=== PATIENT | female | born 1965 | race Caucasian/White ===

== ENCOUNTER → 2018-05-04 | Outpatient (CLI) | payer OTHER ==
[~2018-05-04] MED LIST: ANAS1 PO; CHONDROITIN; DULO60; EXEM25 PO; FISH1000 PO; FLAX PO; FURO20 PO; GABA800 PO; GLUC500 PO; LEVSOD50 PO; LISI5 PO; MSM; MULTIVITAMIN; PANT40 PO; PREG150 PO; PRIMROSE OIL; Prednisone20 MG PO; SELENIUM 200MCG; THYR60 PO; UBID100 PO; Zovirax800 MG PO; [UNRECOGNIZED DRUG - OTHER]
== END | disposition home or self-care (01) ==
LOC: LAB 11:05 → LAB SHORT 11:05
DX: L08.9 Local infection of the skin and subcutaneous tissue, unspecified (principal)
CPT/HCPCS: 87070; 87205

== ENCOUNTER 2019-12-01 09:46 | Day surgery (SDC) | payer OTHER ==
[~2019-12-01] VITALS: Ht 167.6 cm; Wt 102.0 kg
== END 2019-12-01 11:47 | disposition home or self-care (01) ==
LOC: ORSCSDS 09:46
PROVIDERS: Surgery
PROC: 0DJD8ZZ Inspection of Lower Intestinal Tract, Via Natural or Artificial Opening Endoscopic (ICD-10-PCS; principal; 2019-12-01 11:00)
DX: Z12.11 Encounter for screening for malignant neoplasm of colon (principal); K57.30 Diverticulosis of large intestine without perforation or abscess without bleeding; E03.9 Hypothyroidism, unspecified; E11.9 Type 2 diabetes mellitus without complications; I10 Essential (primary) hypertension; E66.01 Morbid (severe) obesity due to excess calories; Z68.38 Body mass index [BMI] 38.0-38.9, adult; Z79.82 Long term (current) use of aspirin; Z79.84 Long term (current) use of oral hypoglycemic drugs; Z79.899 Other long term (current) drug therapy
CPT/HCPCS: 82947; J0330; J0461; J2405; J2704; J7120

== ENCOUNTER → 2020-02-02 | Outpatient (CLI) | payer OTHER ==
[2020-02-02 08:30] LABS: BASOPHILS ABSOLUTE AUTO 0.08 K/mm3 (0.00-0.23); BASOPHILS PERCENT AUTO 1 % (0-2); EOSINOPHILS ABSOLUTE AUTO 0.55 K/mm3 (0.00-0.68); EOSINOPHILS PERCENT AUTO 6 % (0-6); Hematocrit 41.7 % (33.0-51.0); IMMATURE GRAN ABSOLUTE AUTO 0.04 K/mm3 (0.00-0.10); IMMATURE GRAN PERCENT AUTO 0 % (0-1); LYMPHOCYTES ABSOLUTE AUTO 2.18 K/mm3 (0.84-5.20); LYMPHOCYTES PERCENT AUTO 23 % (21-46); MONOCYTES ABSOLUTE AUTO 0.46 K/mm3 (0.16-1.47); MONOCYTES PERCENT AUTO 5 % (4-13); Mean Corpuscular HGB 28.3 pg (26.0-34.0); Mean Corpuscular HGB Conc 33.6 g/dL (31.5-36.5); Mean Corpuscular Volume 84 fL (80-100); Mean Platelet Volume 9.3 fL (9.1-12.4); NEUTROPHILS ABSOLUTE AUTO 6.26 K/mm3 (1.96-9.15); NEUTROPHILS PERCENT AUTO 66 % (41-73); Platelet Count 336 K/mm3 (150-400); RDW Coefficient Variation 12.8 % (11.7-14.2); Red Blood Cell Count 4.95 M/mm3 (3.80-5.20); White Blood Cell Count 9.57 K/mm3 (4.00-11.30)
[2020-02-02 08:39] LABS: Alanine Aminotransfer (ALT/SGP 73 U/L (12-78); Albumin, Blood 3.7 g/dL (3.4-5.0); Albumin/Globulin Ratio 0.9 (0.8-1.8); Alk Phos 92 U/L (40-126); Anion Gap 9 mmol/L (6-16); Aspartate Aminotrans (AST/SGOT 36 U/L (12-37); Bilirubin, Total 0.3 mg/dL (0.1-1.0); Blood Urea Nitrogen 6 mg/dL (8-24); CO2, Blood 29 mmol/L (21-32); Calcium, Blood 8.9 mg/dL (8.5-10.1); Chloride, Blood 99 mmol/L (98-108); Globulin, Blood 4.3 g/dL (2.2-4.0); Glomerular Filtration Rate >60 (60-); Glucose, Blood 146 mg/dL (70-99); Sodium, Blood 137 mmol/L (136-145)
== END | disposition home or self-care (01) ==
LOC: LAB SHORT 08:23 → LAB EV 08:23
PROVIDERS: Physician Assistant
DX: K11.9 Disease of salivary gland, unspecified (principal)
CPT/HCPCS: 80053; 85025; 86735; 87798

== ENCOUNTER 2021-06-04 16:20 | Observation (INO) | payer OTHER ==
[~2021-06-04] VITALS: Ht 167.6 cm; Wt 96.0 kg
[2021-06-04 17:44] LABS: BASOPHILS ABSOLUTE AUTO 0.05 K/mm3 (0.00-0.23); BASOPHILS PERCENT AUTO 0 % (0-2); EOSINOPHILS ABSOLUTE AUTO 0.22 K/mm3 (0.00-0.68); EOSINOPHILS PERCENT AUTO 2 % (0-6); Hematocrit 39.5 % (33.0-51.0); Hemoglobin 13.2 g/dL (11.5-16.0); IMMATURE GRAN ABSOLUTE AUTO 0.05 K/mm3 (0.00-0.10); IMMATURE GRAN PERCENT AUTO 0 % (0-1); LYMPHOCYTES ABSOLUTE AUTO 2.56 K/mm3 (0.84-5.20); LYMPHOCYTES PERCENT AUTO 20 % (21-46); MONOCYTES PERCENT AUTO 6 % (4-13); Mean Corpuscular HGB 27.6 pg (26.0-34.0); Mean Corpuscular HGB Conc 33.4 g/dL (31.5-36.5); Mean Corpuscular Volume 83 fL (80-100); Mean Platelet Volume 9.5 fL (9.1-12.4); NEUTROPHILS ABSOLUTE AUTO 8.97 K/mm3 (1.96-9.15); NEUTROPHILS PERCENT AUTO 71 % (41-73); Platelet Count 356 K/mm3 (150-400); RDW Coefficient Variation 12.7 % (11.7-14.2); RDW Standard Deviation 38.1 fL (35.1-46.3); Red Blood Cell Count 4.78 M/mm3 (3.80-5.20); White Blood Cell Count 12.55 K/mm3 (4.00-11.30)
[2021-06-04 18:09] LABS: Alanine Aminotransfer (ALT/SGP 47 U/L (12-78); Albumin, Blood 3.8 g/dL (3.4-5.0); Albumin/Globulin Ratio 0.9 (0.8-1.8); Alk Phos 82 U/L (50-136); Anion Gap 9 mmol/L (6-16); Aspartate Aminotrans (AST/SGOT 21 U/L (12-37); Bilirubin, Total 0.4 mg/dL (0.1-1.0); Blood Urea Nitrogen 8 mg/dL (8-24); Bun/Creatinine Ratio 17.2 (12.0-20.0); CO2, Blood 27 mmol/L (21-32); Calcium, Blood 9.5 mg/dL (8.5-10.1); Chloride, Blood 103 mmol/L (98-108); Creatinine, Blood 0.47 mg/dL (0.40-1.00); Globulin, Blood 4.3 g/dL (2.2-4.0); Glomerular Filtration Rate >60 (60-); Glucose, Blood 183 mg/dL (70-99); Potassium, Blood 3.5 mmol/L (3.5-5.5); Sodium, Blood 139 mmol/L (136-145); Total Protein, Blood 8.1 g/dL (6.4-8.2)
[2021-06-04 20:51] LABS: Source, Urine Clean Catch
[2021-06-04 20:55] LABS: Appearance, Urine Clear (Clear); Bilirubin, Urine Neg (Neg); Blood, Urine Neg (Neg); Color, Urine Yellow (P-Yellow); Glucose Qualitative, Urine Neg (Neg); Ketones, Urine 1+ (Neg); Leukocyte Esterase, Urine 1+ (Neg); Nitrite, Urine Neg (Neg); Protein, Urine Neg (Neg); Urobilinogen, Urine 1+ (Normal)
[2021-06-04 21:02] LABS: Bacteria Mod /hpf; Red Blood Cells, Urine Not Seen /hpf (0-2); Squamous Epithelial Cells Rare /hpf (Few)
[2021-06-04] MEDS ORDERED: BUPROPION XL150 M1 PO (21:39)
[2021-06-04] MEDS ORDERED: CYCL10 PO (21:39)
[2021-06-04] MEDS ORDERED: GABAPENTIN600 MG PO (21:39)
[2021-06-04] MEDS ORDERED: ATOR10 PO (21:43)
[2021-06-04] MEDS ORDERED: EXEMESTANE PO (21:44)
[2021-06-04] MEDS ORDERED: ESZOPICLONE3 MG PO (21:44)
[2021-06-04] MEDS ORDERED: ESCI20 PO (21:44)
[2021-06-04] MEDS ORDERED: PANTOPRAZOLE SO40 M2 PO (21:46)
[2021-06-04] MEDS ORDERED: METFORMIN HCL500 M2 PO (21:46)
[2021-06-04] MEDS ORDERED: SYNTHROID100 MC7 PO (21:46)
[2021-06-04] MEDS ORDERED: TRULICITY1.5 MG/0.1 SC (21:47)
[2021-06-04] MEDS ORDERED: PREG150 PO ×2 (21:56)
--- NOTE | 2021-06-04 23:05 | NUR ---
2230 PT ARRIVED TO ROOM FROM ER IN STABLE CONDITION. REPORTS PAIN OF 2/10 IN RLQ ABD AND HEAD. DISCUSSED WITH PT WHAT HER TOLERABLE NUMBER FOR PAIN IS, PT STATES HIGHEST WOULD BE 6/10. DENIES NAUSEA. DISCUSSED WHEN TO CALL FOR PAIN AND NAUSEA MEDS BEFORE THE PAIN OR NAUSEA WAS TOO HIGH OF A LEVEL. NO OTHER APPARENT SIGNS OF DISTRESS. CALL LIGHT IS IN REACH.
--- NOTE | 2021-06-05 01:34 | NUR ---
PT LYING IN BED, EYES CLOSED, APPEARS TO BE RESTING, WAKES EASILY TO VERBAL STIMULI. PT REPORTS HEADACHE 06/01, GAVE TYLENOL, REPORTS NO PAIN IN ABD AT THIS TIME AND NO NAUSEA. WILL EVAL FOR EFFECT. NO OTHER APPARENT SIGNS OF DISTRESS. CALL LIGHT IS IN REACH.
--- NOTE | 2021-06-05 03:39 | NUR ---
PT IS AAO X 4, ON RA. REPORTS RLQ ABD PAIN AND A HEAD ACHE. GOT DILAUDED AND ZOFRAN IN ER, TYLENOL ON MED FLOOR.
--- NOTE | 2021-06-05 03:39 | NUR ---
PT LYING IN BED, EYES CLOSED, APPEARS TO BE RESTING. BREATHING IS EVEN, UNLABORED. NO APPARENT SIGNS OF DISTRESS. CALL LIGHT IS IN REACH.
--- NOTE | 2021-06-05 05:57 | NUR ---
PT LYING IN BED, EYES CLOSED, APPEARS TO BE RESTING. BREATHING IS EVEN, UNLABORED. NO APPARENT SIGNS OF DISTRESS. CALL LIGHT IS IN REACH. NO OTHER CHANGES THIS SHIFT.
[2021-06-05 09:09] LABS: SARS-Cov-2 (COVID-19) PCR, MMC NEGATIVE (NEGATIVE)
--- NOTE | 2021-06-05 10:54 | NUR ---
06/05/21 1054 YIISABELL MCARTHUR RECEIVED SCHEDULED DOSE OF ANTIBIOTICS PRIOR TO PROCEDURE, MADE AWARE, NO NEW ORDERS.
--- NOTE | 2021-06-05 11:30 | NUR ---
Transfer of Care Patient gone for lap appy. Report given to receiving RN Katie. Patient transferring from 304 to 209. Personal belongings and AM meds sent to room and given to Katie by DEBORAH.
--- NOTE | 2021-06-05 12:38 | NUR ---
PATIENT CAME BACK FROM PACU TODAY 06/05/21 AT 1230. POD 0 LAP APPY PATIENT IS ALERT AND ORIENTED X4. VS ARE WNL AND IS ON RA. PAIN IS MANAGED AT THIS TIME. THE 4 LAP SITES ON HER ABD HAVE STERI STRIPS AND ARE C/D/I. SHE DENIES NUMBNESS AND TINGLING. SHE IS ABLE TO WIGGLE HER FINGERS AND TOES. ABD IS TENDER BUT HAS HYPERACTIVE BOWEL TONES. PATIENT IS CURRENTLY LAYING IN BED. CALL LIGHT WITHIN REACH. SHE IS RESTING COMFORTABLY AT THIS TIME. IV IS INFUSING AND IS WNL.
[2021-06-05] MEDS ORDERED: OXYC5 PO (16:02)
--- NOTE | 2021-06-05 16:23 | NUR ---
DISCHARGE NOTE: PATIENT WAS EDUCATED ON DISCHARGE INSTRUCTIONS. SHE VERBALIZED UNDERSTANDING OF INSTRUCTIONS AND HAD NO FURTHER QUESTIONS AT TIME. HARD PERSCRIPTION IS IN THE INSTRUCTION FOLDER. PATIENT IS ALERT AND ORIENTED X4. VS ARE WNL AND IS ON RA. PATIENT DENIES PAIN AT THIS TIME. THE 4 LAP SITES ON THE ABD WITH STERI STRIPS ARE C/D/I. SHE HAS TOLERATED PO INTAKE AND IS VOIDING. SHE IS AMBULATING INDEPENDANTLY. IV WAS TAKEN OUT AND WAS WNL. SHE HAS HER ITEMS GATHERED AND IN BAGS. SHE WAS TAKEN OUT BY WHEELCHAIR TO HER HUSBANDS CAR AND WAS DRESSED.
== END 2021-06-05 16:36 | disposition home or self-care (01) ==
LOC: ER 16:20 → SURS 16:21 → MEDS 16:21 → ER 21:56 → MEDS 21:56 → SURS 21:56 → MEDS 22:11 → SURS 06-05 12:21
PROVIDERS: Physician Assistant; Surgery; ADMIT Surgery
PROC: 0DTJ4ZZ Resection of Appendix, Percutaneous Endoscopic Approach (ICD-10-PCS; principal; 2021-06-05 09:30)
DX: K35.80 Unspecified acute appendicitis (principal); I10 Essential (primary) hypertension; E11.9 Type 2 diabetes mellitus without complications; E03.9 Hypothyroidism, unspecified; Z88.0 Allergy status to penicillin; Z20.822 Contact with and (suspected) exposure to COVID-19
CPT/HCPCS: 36415; 74176; 80053; 81001; 82947; 83690; 85025; 93005; 93010; A9270; G0378; J0696; J1100; J1170; J1815; J1885; J2250; J2405; J2704; J2765; J3010; J7030; J7120; U0004

== ENCOUNTER → 2022-10-07 | Outpatient (CLI) | payer OTHER ==
[~2022-10-07] MED LIST changes: +ATOR10 PO; +BUPROPION XL150 M1 PO; +CYCL10 PO; +ESCI20 PO; +ESZOPICLONE3 MG PO; +EXEMESTANE PO; +GABAPENTIN600 MG PO; +METFORMIN HCL500 M2 PO; +OXYC5 PO; +PANTOPRAZOLE SO40 M2 PO; +SYNTHROID100 MC7 PO; +TRULICITY1.5 MG/0.1 SC
[2022-10-09 19:31] LABS: Adenovirus F 40/41 Not Detected (NOT DETECT); Astrovirus Not Detected (NOT DETECT); Campylobacter Sp Not Detected (NOT DETECT); Cryptosporidium Not Detected (NOT DETECT); Cyclospora Cayetanensis Not Detected (NOT DETECT); E. Coli O157 Not Detected (NOT DETECT); Entamoeba Histolytica Not Detected (NOT DETECT); Enteroaggregative E. coli-EAEC Not Detected (NOT DETECT); Enteropathogenic E. coli-EPEC Not Detected (NOT DETECT); Enterotoxigenic E. coli-ETEC Not Detected (NOT DETECT); Giardia Lamblia Not Detected (NOT DETECT); Norovirus GI/GII Not Detected (NOT DETECT); Plesiomonas Shigelloides Not Detected (NOT DETECT); Rotavirus A Not Detected (NOT DETECT); Salmonella Sp Not Detected (NOT DETECT); Sapovirus Not Detected (NOT DETECT); Shiga Toxin-prod E. coli-STEC Not Detected (NOT DETECT); Shigella/Enteroin E. coli-EIEC Not Detected (NOT DETECT); Vibrio Cholerae Not Detected (NOT DETECT); Vibrio Sp Not Detected (NOT DETECT); Yersinia Enterocolitica Not Detected (NOT DETECT)
== END | disposition home or self-care (01) ==
LOC: EDSTATUS 13:33 → LAB 17:00 → LAB SHORT 17:00
PROVIDERS: Nurse Practitioner Family
DX: R19.5 Other fecal abnormalities (principal)
CPT/HCPCS: 87507

== ENCOUNTER → 2024-01-07 | Outpatient (CLI) | payer OTHER ==
[2024-01-07 15:50] LABS: Bacterial Vaginosis PCR Negative (NEGATIVE); Candida Group, PCR NOT DETECTED (NOT DETECT); Candida glabrata-krusei, PCR NOT DETECTED (NOT DETECT)
[2024-01-15 09:58] LABS: HPV SOURCE Cervical
== END ==
LOC: LAB SHORT 08:00 → LAB 08:00
PROVIDERS: Nurse Practitioner Family
DX: Z01.419 Encounter for gynecological examination (general) (routine) without abnormal findings (principal); B37.31 Acute candidiasis of vulva and vagina
CPT/HCPCS: G0123

== ENCOUNTER → 2024-09-16 | Outpatient (CLI) | payer OTHER ==
[2024-09-20 21:05] LABS: HSV 1 SUBTYPE BY PCR Not Detected; HSV 2 SUBTYPE BY PCR Not Detected; HSV SUBTYPE SOURCE Swab
== END ==
LOC: LAB 18:00 → LAB SHORT 18:00
DX: L08.9 Local infection of the skin and subcutaneous tissue, unspecified (principal)
CPT/HCPCS: 87070; 87205; 87529

== ENCOUNTER → 2024-10-14 | Outpatient (CLI) | payer OTHER ==
[2024-10-14 15:33] LABS: Creatinine, Urine Random 59.8 mg/dL (27.00-270.00)
[2024-10-14 15:36] LABS: Microalb/Creat Ratio UR, Rand 32.442 mg/g (0.000-30.000); Microalbumin, Random Urine 19.4 mg/L (0.000-20.000)
== END | disposition home or self-care (01) ==
LOC: LAB 05:00 → LAB SHORT 05:00
PROVIDERS: Nurse Practitioner Family
DX: E11.65 Type 2 diabetes mellitus with hyperglycemia (principal)
CPT/HCPCS: 82043; 82570